=== PATIENT | female | born 1995 | race Caucasian/White ===

== ENCOUNTER → 2016-11-30 12:54 | Emergency (ER) | payer SELFPAY ==
[~2016-11-30 12:54] MED LIST: Cyclobenzaprine TAB* 10 MG PO ONE; Ibuprofen TAB* 800 MG PO ONE
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
[2016-11-30 17:26] VITALS: BP 126/75
== END | disposition home or self-care (01) ==
LOC: ED 12:54
DX: S16.1XXA Strain of muscle, fascia and tendon at neck level, initial encounter (principal); S29.012A Strain of muscle and tendon of back wall of thorax, initial encounter; V49.9XXA Car occupant (driver) (passenger) injured in unspecified traffic accident, initial encounter; Y93.89 Activity, other specified; Y92.89 Other specified places as the place of occurrence of the external cause; M54.2 Cervicalgia
CPT/HCPCS: 72020; 72040; 72070; 72125; 99282; A9270-GY